=== PATIENT | male | born 1950 | race American Indian/Alaskan Native ===

== ENCOUNTER 2016-09-03 10:17 | Day surgery (SDC) | payer MEDICARE ==
--- NOTE | 2016-09-03 10:45 | Anesthesia Consultation ---
Anesthesia Consult and Med Hx Date of service: 09/03/16 - Airway Anesthetic Teeth Evaluation: Poor, Edentulous ROM Head & Neck: Adequate Mental/Hyoid Distance: Adequate Mallampati Class: Class II Intubation Access Assessment: Possibly Difficult - Pulmonary Exam CTA: Yes - Cardiac Exam Cardiac Exam: RRR - Pre-Operative Health Status ASA Pre-Surgery Classification: ASA3 Proposed Anesthetic Plan: MAC - Pulmonary Hx Smoking: Yes (3 daily for 40 years) SOB: Yes - Cardiovascular System Hx Hypertension: Yes - Central Nervous System CVA: Yes (stroke about 2 years ago) - Other Systems Hx Alcohol Use: Yes (10 years ago) - Additional Comments Anesthesia Medical History Comments: Hep C carrier, arthritis, dermatitis, H/O colon cancer. Not able to sign consent,
[2016-09-03] MEDS ORDERED: NACL 0.9% 1000 ML 1,000 ML ONE (10:50)
--- NOTE | 2016-09-03 10:52 | Anesthesia Day of Surgery ---
Anesthesia Day of Surgery - Day of Surgery Patient Examined: Yes Patient H&P Reviewed: Yes Patient is NPO: Yes
[2016-09-03] MEDS ORDERED: DIPRIVAN 10 MG/ML IV ONE ×2 (12:34)
[2016-09-03] MEDS ORDERED: WATER FOR IRRIG STERILE IR ONE (12:49)
[2016-09-03] MEDS ORDERED: WATER FOR IRRIG STERILE ONE (12:50)
--- NOTE | 2016-09-03 13:47 | Discharge Summary ---
Short Stay Discharge Plan Activity: advance as tolerated Weight Bearing Status: Weight Bear as Tolerated Diet: regular
--- NOTE | 2016-09-03 13:47 | Operative Report ---
Operative Report Operative Report: Date of procedure: 09/04/2016 Procedure: Colonoscopy through colostomy stoma with ablation of colon polyps Attending physician: Francisco Roberts MD Fountain Vending Mechanic: Francisco Roberts MD Indication: Patient is a 65-year-old male who presented history of blood in stool. He has a past history of colon cancer and has a transverse colostomy. This procedure is done to evaluate patient so that treatment may be directed based the findings. Consent: Informed consent was obtained after advising the patient and family regarding nature of this procedure, its indications, potential benefits as well as possible complications including but not limited to bleeding perforation and adverse reaction to medication, infection as well as other cardiopulmonary complications. An informed written and verbal consent was then obtained after due opportunity was provided for questions and answers. Monitoring: Patient was monitored continuously with pulse oximetry and electrocardiographic recordings as well as blood pressure recordings. Vital signs remained stable throughout this procedure with no untoward events. Preoperative assessment: Patient was assessed immediately prior to this procedure for capacity to tolerate monitored anesthesia care and moderate sedation as well as general anesthesia. Patient's ASA classification is [2], Mallampati class is [2], Hyomental distance is [3]. Instrument: [employer] videocolonoscope Medications: Propofol, given intravenously in divided doses. For details please refer to anesthesia records. Description of procedure: Patient was placed in a supine position after achieving sedation, a digital examination of the colostomy stoma was performed following which the colonoscope was introduced into the transverse colon and advanced to the cecum which was identified by the cecal valve, the appendiceal orifice, as well as by the cecal strap and direct transillumination. The colonoscope was subsequently withdrawn with careful inspection of all mucosal surfaces. Patient tolerated this procedure well and was subsequently taken to the recovery room. The following findings were noted. Findings: There was densely adherent stool in the cecum which was vigorously irrigated. There were 2 diminutive polyps close to the colostomy stoma, which were ablated. There were minimal excoriations close to the colostomy introitus. The rest of the examination was normal. Impression: Transverse colon polyps status post ablation. Colostomy stoma excoriation. Retained stool. Plan: Continue high-fiber diet. Consider sigmoidoscopy in the future through the rectum to see if patient has any residual colon. As needed stool softeners
--- NOTE | 2016-09-03 13:56 | Post Anesthesia Evaluation ---
- Post Anesthesia Evaluation Patient Participated: Yes Airway Patent: Yes Stable Respiratory Function: Yes Nausea/Vomiting: No Temp > 96.8F: Yes Pain Manageable: Yes Adequeate Hydration: Yes Anesthesia Complications: No Block Receding Appropriately: Not Applicable Patient on Ventilator: No
[2016-09-03 14:35] VITALS: BP 159/94
== END 2016-09-03 10:18 | disposition home or self-care (01) ==
LOC: GIO 10:17
PROVIDERS: ATTEND Internal Medicine Gastroenterology
DX: K94.09 Other complications of colostomy (principal); K63.5 Polyp of colon; M19.90 Unspecified osteoarthritis, unspecified site; I10 Essential (primary) hypertension; F79 Unspecified intellectual disabilities; F17.210 Nicotine dependence, cigarettes, uncomplicated; Z86.73 Personal history of transient ischemic attack (TIA), and cerebral infarction without residual deficits; Z85.038 Personal history of other malignant neoplasm of large intestine; Z90.49 Acquired absence of other specified parts of digestive tract; Z79.899 Other long term (current) drug therapy; Z72.89 Other problems related to lifestyle; Y83.3 Surgical operation with formation of external stoma as the cause of abnormal reaction of the patient, or of later complication, without mention of misadventure at the time of the procedure
CPT/HCPCS: 44401; J2704; J7030